=== PATIENT | male | born 1995 | race Caucasian/White ===

== ENCOUNTER 2020-03-12 16:30 | Observation (INO) ==
[2020-03-12 17:21] LABS: Basophils % 0.3 % (0.0-0.8); Eosinophils % 0.3 % (0.00-10.9); Hematocrit 47.6 VOL% (42.0-52.0); Hemoglobin 15.8 GM/DL (14.0-18.0); Immature Granulocytes % 0.4 %; Immature Granulocytes Absolute 0.05 #; Lymphocytes # 1.3 10*3/uL (1.4-4.0); Lymphocytes % 9.9 % (21.2-54.2); Mean Corpuscular HGB Conc 33.2 GM/DL (32-36); Mean Corpuscular Volume 86.9 FL (87-102); Mean Platelet Volume 9.2 FL (9.6-12.0); Neutrophils % 85.1 % (38.7-73.9); Platelet Count 302 T/CUMM (130-400); Red Blood Count 5.48 MC/CUMM (3.8-5.5); Red Cell Distribution Width 12.1 % (9.3-17.3); White Blood Count 13.1 T/CUMM (4-12)
[2020-03-12 17:28] LABS: PT Patient Result 11.2 SECS (9.8-11.9)
[2020-03-12 17:30] LABS: Alanine Aminotransferase 19 U/L (16-61); Albumin 4.1 G/DL (3.4-5.0); Alkaline Phosphatase 80 U/L (45-117); Aspartate Amino Transferase 20 U/L (0-37); Blood Urea Nitrogen 15 MG/DL (7-18); Estimated Glom Filtration Rate 131 ML/MIN; Ferritin 35.5 ng/ml (26-388); Glucose 95 MG/DL (74-106); Osmolality,Calculated 275.7 MOS/KG (273-304); Total Protein 6.9 G/DL (6.4-8.3)
[2020-03-12] MEDS ORDERED: ASPIRIN CHEW 81 MG TABLET PO STA (17:51)
[2020-03-12 18:31] LABS: Sedimentation Rate-Westergren 0 MM/HR (0-15)
[2020-03-12 20:42] LABS: Apearance,Urine CLEAR (Clear); Bacteria,Urine Occasional /HPF (Few); Bilirubin,Urine Negative (Negative); Blood, Urine Negative (Negative); Glucose,Urine (UA) Negative (Negative); Hyaline Casts,Urine 1 /LPF (0-3); Ketones,Urine 80 mg/dL (Negative); Mucus,Urine Moderate /LPF (Occasional); Nitrite,Urine Negative (Negative); Protein,Urine Negative; RBC,Urine <1 /HPF (0-4); Urine Color Yellow (Yellow); Urine Urobilinogen < 2.0 EU/DL (0.2-1.0); WBC,Urine 2 /HPF (0-6)
[2020-03-12] MEDS ORDERED: GLUCAGON 1 MG VIAL IM PRN (21:26)
[2020-03-12] MEDS ORDERED: ONDANSETRON 4 MG/2 ML VIAL IV PRN (21:26)
[2020-03-12] MEDS ORDERED: DEXTROSE 10% 250 ML BAG IV PRN (21:26)
[2020-03-12] MEDS ORDERED: ACETAMINOPHEN 325 MG TABLET PO PRN (21:26)
[2020-03-12] MEDS ORDERED: ENOXAPARIN 40 MG/0.4 ML SYRINGE SUBCUT SCH (21:30)
[2020-03-12] MEDS: DOCUSATE SODIUM 100 MG CAPSULE PO SCH (22:10)
[2020-03-12] MEDS: SODIUM CHLORIDE 0.9% 1,000 ML IV SCH (22:10)
[2020-03-13 06:34] LABS: Basophils % 0.4 % (0.0-0.8); Eosinophils # 0.2 10*3/uL (0.0-0.87); Eosinophils % 2.5 % (0.00-10.9); Hematocrit 47.4 VOL% (42.0-52.0); Hemoglobin 15.2 GM/DL (14.0-18.0); Immature Granulocytes % 0.2 %; Immature Granulocytes Absolute 0.02 #; Lymphocytes # 3.3 10*3/uL (1.4-4.0); Lymphocytes % 39.1 % (21.2-54.2); Mean Corpuscular HGB Conc 32.1 GM/DL (32-36); Mean Corpuscular Volume 89.3 FL (87-102); Mean Platelet Volume 8.9 FL (9.6-12.0); Monocytes % 6.5 % (1.7-12.7); Neutrophils % 51.3 % (38.7-73.9); Platelet Count 298 T/CUMM (130-400); Red Blood Count 5.31 MC/CUMM (3.8-5.5); Red Cell Distribution Width 12.3 % (9.3-17.3); White Blood Count 8.5 T/CUMM (4-12)
[2020-03-13 08:08] LABS: Albumin 3.5 G/DL (3.4-5.0); Bilirubin,Total 0.9 MG/DL (0.2-1.0); Total Protein 6.3 G/DL (6.4-8.3)
[2020-03-13 08:10] LABS: Osmolality,Calculated 277.3 MOS/KG (273-304)
[2020-03-13] MEDS ORDERED: AMITRIPTYLINE 10 MG TABLET PO ONE (09:00)
[2020-03-13] MEDS ORDERED: ASPIRIN CHEW 81 MG TABLET PO SCH (09:00)
[2020-03-13] MEDS ORDERED: PANTOPRAZOLE 40 MG TABLET PO SCH (09:00)
[2020-03-13] MEDS: DOCUSATE SODIUM 100 MG CAPSULE PO SCH (09:25)
[2020-03-13] MEDS: SODIUM CHLORIDE 0.9% 1,000 ML IV SCH (11:30)
[2020-03-13 11:53] VITALS: BP 110/58
[2020-03-13] MEDS ORDERED: AMITRIPTYLINE 10 MG TABLET PO SCH (21:00)
[2020-03-13] MEDS ORDERED: PNEUMOCOCCAL VACCINE (23 VALENT) 0.5 ML VIAL IM ONE (22:28)
[2020-03-14] MEDS ORDERED: METOPROLOL SUCCINATE XL 50 MG TABLET PO SCH (09:00)
[2020-03-14] MEDS ORDERED: ASPIRIN EC 81 MG TABLET PO SCH (09:00)
[2020-03-14] MEDS ORDERED: POTASSIUM GLUCONATE 500 MG TABLET PO SCH (09:00)
[2020-03-14] MEDS ORDERED: MAGNESIUM CHLORIDE 64 MG TABLET PO SCH (09:00)
== END 2020-03-13 16:16 | disposition home or self-care (01) ==
LOC: EDBD → EDUNIT# → N.EDINP 16:30 → N.ED 16:30 → N.2E 19:09
PROVIDERS: ADMIT Internal Medicine; ATTEND Internal Medicine